=== PATIENT | female | born 1955 | race Caucasian/White ===

== ENCOUNTER 2017-11-25 13:43 | Observation (INO) | payer MEDICAID ==
[~2017-11-25] VITALS: Ht 160 cm; Wt 92.8 kg
[~2017-11-25 13:43] MED LIST: COZAAR 50 MG TA50 M2 PO; FLEXERIL; IBUPROFEN 800800 M1 PO; LOPRESSOR25 PO; NORCO 5-325 TA1 EAC1 PO; OMEPRAZOLE40 MG PO; PRAVACHOL40 MG PO; PREDNISONE 10 M10 MG PO; PROAIR HFA8.5 GM INH; PROMETHAZINE D480 ML PO; TESSALON PERLE100 MG PO; ZPAK PO
[2017-11-25 14:06] VITALS: BP 121/96
[2017-11-25 14:12] LABS: HEMATOCRIT 45.1 % (37.0-47.0); HEMOGLOBIN 15.4 gm/dL (12.0-15.0); MCH 32.4 pg (26.0-34.0); MCHC 34.1 g/dL (28.0-37.0); MCV 95.1 fL (80.0-100.0); MPV 9.4 fl. (7.2-11.1); NUCLEATED RBCS 0 /100WBC; PLATELET COUNT* 325 thou/uL (150-400); RBC 4.74 mil/uL (4.20-5.00); RDW-CV 12.8 % (10.5-14.5); WBC 8.4 thou/uL (4.0-11.0)
--- NOTE | 2017-11-25 14:25 | NUR ---
IV LOPRESSOR GIVEN ORDERED SLOW IVP
[2017-11-25] MEDS ORDERED: HYZAAR 50-12.51 EACH PO (14:29)
[2017-11-25] MEDS ORDERED: ZINC PO (14:29)
[2017-11-25] MEDS ORDERED: [UNRECOGNIZED DRUG - OTHER] PO (14:29)
[2017-11-25 14:34] LABS: ANION GAP 8 mmol/L (7-16); BUN 16 mg/dL (7-18); CALCIUM 9.2 mg/dL (8.5-10.1); CHLORIDE 99 mmol/L (98-107); CO2 31 mmol/L (21-32); CREATININE 0.6 mg/dL (0.6-1.3); GLUCOSE 125 mg/dL (70-99); POTASSIUM 3.6 mmol/L (3.5-5.1); SODIUM 138 mmol/L (136-145)
[2017-11-25 14:35] LABS: APTT 27.9 Seconds (25.0-31.3); INR 0.9; PROTIME 9.4 Seconds (9.20-11.50)
[2017-11-25 14:44] LABS: ABSOLUTE EOSINOPHILS 0.3 thou/uL (0.0-0.7); ABSOLUTE MONOCYTES 0.7 thou/uL (0.0-1.2); ABSOLUTE NEUTROPHILS 4.5 thou/uL (1.6-8.1); ATYPICAL LYMPHS 1 %; PLATELET ESTIMATE ADEQUATE
[2017-11-25 14:46] LABS: LARGE PLATELETS OCCASIONAL
[2017-11-25 14:56] LABS: ALBUMIN 4.2 g/dL (3.4-5.0); ALKALINE PHOSPHATASE 82 U/L (46-116); CK-MB MASS 1.2 ng/mL (<0.5-3.6); LIPASE 136 U/L (73-393); MAGNESIUM 1.9 mg/dL (1.8-2.4); NT-PRO BRAIN NAT PEPTIDE 395 pg/mL (<300); SGOT 16 U/L (15-37); SGPT 25 U/L (30-65); TOTAL BILIRUBIN 0.3 mg/dL (<0.1-1.0); TOTAL PROTEIN 7.9 g/dL (6.4-8.2); TROPONIN-I LEVEL <0.06 ng/mL (<0.06)
[2017-11-25 17:35] VITALS: BP 132/88
[2017-11-25 17:50] VITALS: BP 150/95
--- NOTE | 2017-11-25 19:41 | NUR ---
PT ARRIVED TO ROOM 220 AT APPROX 1740 FROM ER, PT DENIES PAIN, VSS, SR ON THE MONITOR. ADMISSION HX AND ASSESMENT DONE CHARTED. PT ORINETED TO ROOM AND STAFF, UP AD STEFANO. DINNER RECIEVED. REPORT GIVEN TO PASQUALE MCMULLEN.
[2017-11-25 19:45] VITALS: BP 120/71
[2017-11-26] VITALS: BP 107/71
[2017-11-26 04:00] VITALS: BP 108/77
--- NOTE | 2017-11-26 04:30 | NUR ---
END SHIFT: PT RESTED WELL. NO COMPLAINTS, NO PAIN. HR REMAINS RRR IN 70'S. ASESSMENT UNCHANGED. VSS. AWAITING CARDS CONS. SAFETY PRECAUTIONS IN PLACE. CALL LIGHT IN REACH. PERFORMED HOURLY ROUNDING. WILL CONT TO MONITOR.
[2017-11-26 04:49] LABS: HEMATOCRIT 40.3 % (37.0-47.0); HEMOGLOBIN 13.6 gm/dL (12.0-15.0); MCH 32.3 pg (26.0-34.0); MCHC 33.7 g/dL (28.0-37.0); MCV 96.1 fL (80.0-100.0); MPV 9.5 fl. (7.2-11.1); RBC 4.19 mil/uL (4.20-5.00); RDW-CV 12.8 % (10.5-14.5)
[2017-11-26 05:13] LABS: ANION GAP 9 mmol/L (7-16); BUN 12 mg/dL (7-18); CALCIUM 8.9 mg/dL (8.5-10.1); CHLORIDE 100 mmol/L (98-107); CO2 32 mmol/L (21-32); CREATININE 0.5 mg/dL (0.6-1.3); GLUCOSE 112 mg/dL (70-99); MAGNESIUM 1.9 mg/dL (1.8-2.4); POTASSIUM 3.7 mmol/L (3.5-5.1); SODIUM 141 mmol/L (136-145)
[2017-11-26 05:28] LABS: CHOLESTEROL 226 mg/dL (<200); HDL CHOLESTEROL 61 mg/dL (>40); LDL CHOLESTEROL 136 mg/dL (<100); TC:HDL 3.7 Ratio (Not establshd); TRIGLYCERIDE 147 mg/dL (<150); VLDL 29 mg/dL (<40)
[2017-11-26 05:33] LABS: SERUM ASSESSMENT CLEAR
[2017-11-26] MEDS ORDERED: ASPIR 8181 MG PO (08:25)
[2017-11-26 08:30] VITALS: BP 124/83
--- NOTE | 2017-11-26 08:30 | NUR ---
ASSUMED PT. CARE AND RECEIVED REPORT AT 0730. PT A/OX4, VSS, MONITOR ON TRACING SR. PT. DENIES CURRENT PAIN/SOB. ON RA @ 93%, EXHIBITS WHEEZES THROUGH OUT LUNG BLANCHARD. FULL ASSESSMENT COMPLETED, REFER TO CHARTING. PT. NPO FOR CV CONSULT. CALL LIGHT IN REACH, WILL CONTINUE WITH PLAN OF CARE.
[2017-11-26 12:00] VITALS: BP 133/89
--- NOTE | 2017-11-26 13:47 | NUR ---
Pt is A&O. Resides at home alone. Independent with ADLs. No DME. No hx of HH or SNF. Goal is to return home. Pt had cardiac testing today, awaiting results. No dc needs anticipated.
--- NOTE | 2017-11-26 14:05 | 2DMMODE ---
[place] [address] 2 D/M-MODE ECHOCARDIOGRAM Name: LAURA JUAREZ Room: [address] IN [facility]#: [id number] Admission: 11/25/17 Attend Phys: Florentin Diaz, Discharge: Date of : 57 Date of Service: 11/26/17 1405 Report #: [id number] THIS REPORT FOR: //name// APPROVED REPORT Study performed: 11/26/2017 10:58:36 EXAM: Comprehensive 2D, Doppler, and color-flow Echocardiogram Patient Location: In-Patient Room #: 220 Status: routine BSA: 1.93 HR: 69 bpm BP: 108/77 mmHg Rhythm: NSR Other Information Study Quality: Good Indications Arrhythmia 2D Dimensions IVSd: 11.01 (7-11mm) LVOT Diam: 21.22 (18-24mm) LVDd: 45.37 mm PWd: 9.79 (7-11mm) Ascending Ao: 34.21 (22-36mm) LVDs: 30.37 (25-40mm) Aortic Root: 27.16 mm Volumes Left Atrial Volume (Systole) LA ESV Index: 23.40 mL/m2 Aortic Valve AoV Peak Darion.: 1.73 m/s AO Peak Gr.: 11.96 mmHg LVOT Max P.59 mmHg AO Mean Gr.: 6.26 mmHg LVOT Mean P.01 mmHg LVOT Max V: 1.07 m/s AO V2 VTI: 28.50 cm LVOT Mean V: 0.64 m/s JESUS MANUEL (VTI): 2.50 cm2 LVOT V1 VTI: 20.13 cm Mitral Valve E/A Ratio: 0.73 MV Decel. Time: 296.29 ms MV E Max Darion.: 0.66 m/[place] [address] 2 D/M-MODE ECHOCARDIOGRAM Name: LAURA JUAREZ Room: [address] IN [facility].#: [id number] Admission: 11/25/17 Attend Phys: Florentin Diaz, Discharge: Date of : 57 Date of Service: 11/26/17 1405 Report #: [id number] MV PHT: 85.92 ms MVA (PHT): 2.56 cm2 TDI E/Lateral E': 6.60 E/Medial E': 4.71 Medial E' Darion.: 0.14 m/s Lateral E' Darion.: 0.10 m/s Pulmonary Valve PV Peak Darion.: 0.97 m/s PV Peak Gr.: 3.78 mmHg Left Ventricle The left ventricle is normal size. There is normal LV segmental wall motion. There is normal left ventricular wall thickness. Left ventricular systolic function is normal. The left ventricular ejection fraction is within the normal range. LVEF is 55-60%. Grade I - abnormal relaxation pattern. Right Ventricle The right ventricle is normal size. The right ventricular systolic function is normal. Atria The left atrium size is normal. The right atrium size is normal. Aortic Valve Mild aortic valve sclerosis. No aortic regurgitation is present. There is no aortic valvular stenosis. Mitral Valve The mitral valve is normal in structure. There is no mitral valve regurgitation noted. No evidence of mitral valve stenosis. Tricuspid Valve The tricuspid valve is normal in structure. There is no tricuspid valve regurgitation noted. Pulmonic Valve The pulmonary valve is normal in structure. There is no pulmonic valvular regurgitation. Great Vessels The aortic root is normal in size. IVC is normal in size and collapses >50% [place] [address] 2 D/M-MODE ECHOCARDIOGRAM Name: ANNLAURA Mensah Lizz Room: [address] IN [facility]#: [id number] Admission: 11/25/17 Attend Phys: Florentin Diaz, Discharge: Date of : 57 Date of Service: 11/26/17 1405 Report #: [id number] Pericardium There is no pericardial effusion. <Conclusion> The left ventricle is normal size. There is normal left ventricular wall thickness. Left ventricular systolic function is normal. The left ventricular ejection fraction is within the normal range. LVEF is 55-60%. Grade I - abnormal relaxation pattern. The right ventricle is normal size. The left atrium size is normal. Mild aortic valve sclerosis. No aortic regurgitation is present. There is no aortic valvular stenosis. The mitral valve is normal in structure. The tricuspid valve is normal in structure. IVC is normal in size and collapses >50% with inspiration. There is no pericardial effusion. There is normal LV segmental wall motion. <ELECTRONICALLY SIGNED> By: Jose Bowman MD, FACC 11/26/17 1405 1405 1405 Jose Bowman MD, FACC /INF
[2017-11-26] MEDS ORDERED: CARDIZEM CD120 MG PO (15:16)
[2017-11-26 15:18] VITALS: BP 133/89
--- NOTE | 2017-11-26 16:33 | EKG ---
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[facility] : 1955 Requested By: Otis Chavez Order Number: [id number] MD: Jose Bowman Measurements Intervals [place] Rate: 154 P: 0 DE: QRS: 91 QRSD: 97 T: -3 QT: 286 QTc: 458 Interpretive Statements Supraventricular tachycardia Right axis deviation Abnormal R-wave progression, late transition Borderline T abnormalities, inferior leads Compared to ECG 12/24/2011 21:16:38 Right-axis deviation now present T-wave abnormality now present Sinus rhythm no longer present Electronically Signed On 11-26-2017 16:33:06 CDT by Jose Bowman [email or web address] <ELECTRONICALLY SIGNED> By: Jose Bowman MD, FACC 11/26/17 1633 1350 1350 Jose Bowman MD, [facility] /EPI
--- NOTE | 2017-11-26 16:35 | EKG ---
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[facility] : 1955 Requested By: Otis Chavez Order Number: [id number] MD: Jose Bowman Measurements Intervals [place] Rate: 81 P: 56 UT: 158 QRS: 68 QRSD: 106 T: 51 QT: 374 QTc: 434 Interpretive Statements Sinus rhythm Atrial premature complexes Low voltage, extremity leads Abnormal R-wave progression, late transition Borderline ST elevation, anterolateral leads Compared to ECG 12/24/2011 21:16:38 Atrial premature complex(es) now present Low QRS voltage now present SUPRAVENTRICULAR TACHYCARDIA no longer noted Electronically Signed On 11-26-2017 16:35:42 CDT by oJse Bowman [email or web address] <ELECTRONICALLY SIGNED> By: Jose Bowman MD, [facility] 11/26/17 1635 1451 1451 Jose Bowman MD, [facility] /EPI
== END 2017-11-26 15:59 | disposition home or self-care (01) ==
LOC: M.ERS 13:43 → M.2W 15:24 → M.TBA-ER 15:24 → M.2W 17:45
PROVIDERS: Family Medicine; ADMIT Internal Medicine
DX: I47.1 Supraventricular tachycardia (principal); K21.9 Gastro-esophageal reflux disease without esophagitis; I10 Essential (primary) hypertension; E78.5 Hyperlipidemia, unspecified; F17.210 Nicotine dependence, cigarettes, uncomplicated; R57.0 Cardiogenic shock; Z98.890 Other specified postprocedural states; Z72.89 Other problems related to lifestyle

== ENCOUNTER → 2019-07-12 | Outpatient (CLI) | payer MEDICAID ==
[~2019-07-12] MED LIST changes: +ASPIR 8181 MG PO; +CARDIZEM CD120 MG PO; +HYZAAR 50-12.51 EACH PO; +ZINC PO; +[UNRECOGNIZED DRUG - OTHER] PO
--- NOTE | 2019-07-12 14:12 | 2DMMODE ---
[place] [address] 2 D/M-MODE ECHOCARDIOGRAM Name: ANNLAURA M Room: [facility]#: [id number] Admission: 07/12/19 Attend Phys: Lizz Najera Discharge: Date of : 57 Date of Service: 07/12/19 1410 Report #: [id number] THIS REPORT FOR: cc: Juan Ramon Mendez Ahmad W. DO Liston, Michael J. MD [facility] ~ APPROVED REPORT Study performed: 07/12/2019 09:09:08 EXAM: Comprehensive 2D, Doppler, and color-flow Echocardiogram Patient Location: Out-Patient BSA: 1.93 HR: 80 bpm BP: 140/82 mmHg Other Information Study Quality: Fair Indications Hypertension/HDD 2D Dimensions IVSd: 12.75 (7-11mm) LVOT Diam: 20.24 (18-24mm) LVDd: 43.22 mm PWd: 11.14 (7-11mm) Ascending Ao: 31.28 (22-36mm) LVDs: 22.87 (25-40mm) Aortic Root: 22.58 mm Volumes Left Atrial Volume (Systole) LA ESV Index: 9.00 mL/m2 Aortic Valve AoV Peak Darion.: 1.83 m/s AO Peak Gr.: 13.35 mmHg LVOT Max P.47 mmHg AO Mean Gr.: 7.43 mmHg LVOT Mean P.60 mmHg LVOT Max V: 0.93 m/s AO V2 VTI: 31.69 cm LVOT Mean V: 0.58 m/s JESUS MANUEL (VTI): 1.73 cm2 LVOT V1 VTI: 17.09 cm Mitral Valve E/A Ratio: 0.69 [place] [address] 2 D/M-MODE ECHOCARDIOGRAM Name: LAURA JUAREZ Room: [facility]#: [id number] Admission: 07/12/19 Attend Phys: Lizz Najera Discharge: Date of : 57 Date of Service: 07/12/19 1410 Report #: [id number] MV Decel. Time: 198.91 ms MV E Max Darion.: 0.52 m/s MV PHT: 57.68 ms MVA (PHT): 3.81 cm2 TDI E/Lateral E': 5.20 E/Medial E': 5.78 Medial E' Darion.: 0.09 m/s Lateral E' Darion.: 0.10 m/s Pulmonary Valve PV Peak Darion.: 1.02 m/s PV Peak Gr.: 4.15 mmHg Left Ventricle The left ventricle is normal size. There is normal LV segmental wall motion. There is normal left ventricular wall thickness. Left ventricular systolic function is normal. LVEF is 55-60%. Grade I - abnormal relaxation pattern. Right Ventricle The right ventricle is normal size. The right ventricular systolic function is normal. Atria The left atrium size is normal. The right atrium size is normal. Aortic Valve The Aortic valve is sclerotic. No aortic regurgitation is present. Mild aortic stenosis. Mitral Valve The mitral valve is normal in structure. There is no mitral valve regurgitation noted. No evidence of mitral valve stenosis. Tricuspid Valve The tricuspid valve is normal in structure. There is no tricuspid valve regurgitation noted. Pulmonic Valve The pulmonary valve is normal in structure. There is no pulmonic valvular regurgitation. Great Vessels The aortic root is normal in size. IVC is normal in size and collapses >50% [place] [address] 2 D/M-MODE ECHOCARDIOGRAM Name: LAURA JUAREZ Room: [facility]#: [id number] Admission: 07/12/19 Attend Phys: Lizz Najera Discharge: Date of : 57 Date of Service: 07/12/19 1410 Report #: [id number] Pericardium There is no pericardial effusion. <Conclusion> The left ventricle is normal size. There is normal left ventricular wall thickness. Left ventricular systolic function is normal. LVEF is 55-60%. Grade I - abnormal relaxation pattern. Mild aortic stenosis. IVC is normal in size and collapses >50% with inspiration. <ELECTRONICALLY SIGNED> By: Juanpablo Ybarra MD, FACC 07/12/191409 09 09 Juanpablo Ybarra MD, FACC /INF
== END ==
LOC: M.CRD 09:00
DX: I35.0 Nonrheumatic aortic (valve) stenosis (principal); I10 Essential (primary) hypertension

== ENCOUNTER → 2020-07-02 | Outpatient (CLI) | payer MEDICAID ==
--- NOTE | 2020-07-02 12:02 | 2DMMODE ---
[place] [address] 2 D/M-MODE ECHOCARDIOGRAM Name: ANNLAURA Room: [facility]#: [id number] Admission: 07/02/20 Attend Phys: Lizz Najera Discharge: Date of : 57 Date of Service: 07/02/20 1202 Report #: [id number] THIS REPORT FOR: cc: Juan Ramon Mendez Ahmad W. DO Blick,Burt Sherwood MD [facility] ~ ADDENDUM APPROVED REPORT Study performed: 07/02/2020 09:35:18 EXAM: Comprehensive 2D, Doppler, and color-flow Echocardiogram Patient Location: Out-Patient BSA: 1.97 HR: 88 bpm BP: 152/88 mmHg Other Information Study Quality: Good Indications Hypertension/HDD 2D Dimensions IVSd: 15.57 (7-11mm) LVOT Diam: 20.02 (18-24mm) LVDd: 39.85 mm PWd: 11.28 (7-11mm) Ascending Ao: 33.34 (22-36mm) LVDs: 25.01 (25-40mm) Aortic Root: 28.60 mm Volumes Left Atrial Volume (Systole) LA ESV Index: 10.80 mL/m2 Aortic Valve AoV Peak Darion.: 2.42 m/s AO Peak Gr.: 23.43 mmHg LVOT Max P.97 mmHg AO Mean Gr.: 12.84 mmHg LVOT Mean P.77 mmHg LVOT Max V: 1.11 m/s AO V2 VTI: 40.75 cm LVOT Mean V: 0.78 m/s JESUS MANUEL (VTI): 1.64 cm2 LVOT V1 VTI: 21.26 cm Mitral Valve E/A Ratio: 0.75 [place] [address] 2 D/M-MODE ECHOCARDIOGRAM Name: LAURA JUAREZ Room: [facility]#: [id number] Admission: 07/02/20 Attend Phys: Lizz Najera Discharge: Date of : 57 Date of Service: 07/02/20 1202 Report #: [id number] MV Decel. Time: 252.78 ms MV E Max Darion.: 0.74 m/s MV PHT: 73.31 ms MVA (PHT): 3.00 cm2 TDI E/Lateral E': 6.73 E/Medial E': 6.17 Medial E' Darion.: 0.12 m/s Lateral E' Darion.: 0.11 m/s Pulmonary Valve PV Peak Darion.: 1.38 m/s PV Peak Gr.: 7.60 mmHg Left Ventricle The left ventricle is normal size. There is normal LV segmental wall motion. Mild concentric left ventricular hypertrophy. Left ventricular systolic function is normal. The left ventricular ejection fraction is within the normal range. LVEF is 55-60%. Grade I - abnormal relaxation pattern. Right Ventricle The right ventricle is normal size. The right ventricular systolic function is normal. Atria The left atrium size is normal. The right atrium size is normal. Aortic Valve Aortic valve is calcified. No aortic regurgitation is present. Mild aortic stenosis. Mitral Valve The mitral valve is normal in structure. There is no mitral valve regurgitation noted. No evidence of mitral valve stenosis. Tricuspid Valve The tricuspid valve is normal in structure. There is trace tricuspid valve regurgitation noted. Pulmonic Valve Pulmonic valve is not well visualized. There is no pulmonic valvular regurgitation. Great Vessels The aortic root is normal in size. IVC [place] [address] 2 D/M-MODE ECHOCARDIOGRAM Name: LAURA JUAREZ Room: [facility]#: [id number] Admission: 07/02/20 Attend Phys: Lizz Najera Discharge: Date of : 57 Date of Service: 07/02/20 1202 Report #: [id number] collapses >50% with inspiration. Pericardium There is no pericardial effusion. <Conclusion> Mild concentric left ventricular hypertrophy. LVEF is 55-60%. Mild aortic stenosis. <ELECTRONICALLY SIGNED> By: Burt Jean MD, FACC 07/02/201201 01 01 Burt Jean MD, FACC /INF
== END ==
LOC: M.CRD 09:39
PROVIDERS: ATTEND Internal Medicine
DX: I35.8 Other nonrheumatic aortic valve disorders (principal); I11.9 Hypertensive heart disease without heart failure

== ENCOUNTER → 2020-08-02 | Outpatient (CLI) | payer MEDICAID | LOC: M.RAD 10:45 | PROVIDERS: ATTEND Family Medicine | DX: Z12.31 Encounter for screening mammogram for malignant neoplasm of breast (principal) ==